=== PATIENT | male | born 1990 | race Two or more races ===

== ENCOUNTER 2017-08-15 12:28 | Outpatient (CLI) | payer OTHER | END 2017-08-15 12:40 | disposition home or self-care (01) | LOC: RAD 501 12:28 | DX: S92.415A Nondisplaced fracture of proximal phalanx of left great toe, initial encounter for closed fracture (principal) ==

== ENCOUNTER 2017-08-17 14:52 | Outpatient (CLI) | payer OTHER | END 2017-08-17 15:03 | disposition home or self-care (01) | LOC: RAD 14:52 | DX: S92.415A Nondisplaced fracture of proximal phalanx of left great toe, initial encounter for closed fracture (principal) ==